=== PATIENT | male | born 1995 | race Hispanic/Latino ===

== ENCOUNTER 2017-05-24 18:30 | Emergency (ER) | payer SELFPAY ==
[2017-05-24] MEDS ORDERED: IBUPROFEN 600 MG TABLET ONE (19:24)
== END 2017-05-24 19:39 | disposition home or self-care (01) ==
LOC: EDH 18:30
DX: S90.31XA Contusion of right foot, initial encounter (principal); Z72.0 Tobacco use; W50.0XXA Accidental hit or strike by another person, initial encounter; Y93.89 Activity, other specified; Y92.89 Other specified places as the place of occurrence of the external cause; Y99.8 Other external cause status
CPT/HCPCS: 73630

== ENCOUNTER 2018-04-20 04:41 | Emergency (ER) | payer SELFPAY | END 2018-04-20 06:44 | disposition home or self-care (01) | LOC: EDH 04:41 | DX: R04.2 Hemoptysis (principal) | CPT/HCPCS: 71046 ==